=== PATIENT | male | born 1990 | race African-American/Black ===

== ENCOUNTER 2017-04-28 17:44 | Emergency (ER) | payer MEDICAID ==
[~2017-04-28] VITALS: Ht 193 cm; Wt 78.7 kg
[2017-04-28 18:06] VITALS: BP 143/94
[2017-04-28] MEDS ORDERED: CARBAMIDE PEROXIDE EAR DROPS 6.5%, 15ML RIGHT EAR ONE (19:00)
[2017-04-28] MEDS ORDERED: CARBAMIDE PEROXIDE EAR DROPS 6.5%, 15ML ONE (19:12)
== END 2017-04-28 21:09 | disposition home or self-care (01) ==
LOC: ED 21:00
DX: K02.9 Dental caries, unspecified (principal); H61.21 Impacted cerumen, right ear
CPT/HCPCS: 69209; 99283